=== PATIENT | male | born 1975 | race American Indian/Alaskan Native ===

== ENCOUNTER 2020-05-05 18:04 | Emergency (ER) | payer MEDICAID ==
[~2020-05-05] VITALS: Ht 180.3 cm; Wt 83.0 kg
[2020-05-05 18:13] VITALS: BP 152/99
--- NOTE | 2020-05-05 18:51 | NUR ---
PATIENT PLACED IN ROOM AND ABDOMINAL PORTOCOL ORDERED
--- NOTE | 2020-05-05 19:30 | NUR ---
UA OBTAINED. RED, DARK URINE SPECIMEN SHOWED TO RENU BEDOYA. INFORMED PA LAB UNABLE TO DRAW LABS, HARD STICK. ORDERS FOR IV TX RECEIVED. EXPLAINED POC TO PATIENT WHO DECLINED TREATMENT AND IV AT THIS TIME; PATIENT STATES "PAIN IS GONE NOW AND I JUST WANT TO LEAVE". PA INFORMED, ORDERS FOR D/C RECEIVED.
[2020-05-05] MEDS ORDERED: normal saline 1000ML IV soln IVB ONE (19:35)
[2020-05-05 19:56] LABS: CLARITY,URINE CLOUDY (Clear); COLOR,URINE BROWN (Yellow); GLUCOSE, URINE NEGATIVE (Neg); KETONES,URINE TRACE mg/dl (Neg); LEUKOCYTE ESTERASE ,URINE NEGATIVE (Neg); NITRITES, URINE NEGATIVE (Neg); OCCULT BLOOD,URINE LARGE (Neg); PH,URINE 6.5 (4.8-8.0); PROTEIN,URINE 100 mg/dl (Neg); UA COLLECTION TYPE CLN CATCH MIDSTREAM
[2020-05-05 20:04] LABS: URINE AMPHETAMINE SCREEN POSITIVE (Neg); URINE BARBITUATE SCREEN NEGATIVE (Neg); URINE BENZODIAZEPINES SCREEN NEGATIVE (Neg); URINE CANNABINOID SCREEN POSITIVE (Neg); URINE COCAINE SCREEN NEGATIVE (Neg); URINE METHADONE SCREEN NEGATIVE (Neg); URINE OPIATE SCREEN NEGATIVE (Neg); URINE PHENCYCLIDINE SCREEN NEGATIVE (Neg)
[2020-05-05 20:06] LABS: WBC,URINE 0-4 /HPF (0-4)
[2020-05-05 20:07] LABS: BACTERIA,URINE FEW /HPF (Neg); RBC,URINE TNTC /HPF (0-2)
[2020-05-05 20:08] LABS: MUCUS STRANDS MODERATE /LPF (Neg); RENAL CELLS, URINE FEW /HPF; SQUAMOUS EPITHELIAL CELL,UR FEW /LPF (FEW)
[2020-05-05 20:09] LABS: CAL OXALATE CRYSTALS FEW /HPF (NEGATIVE); YEAST FEW /HPF (NEGATIVE)
== END 2020-05-05 20:06 | disposition home or self-care (01) ==
LOC: ER 18:05
DX: R10.31 Right lower quadrant pain (principal); R10.9 Unspecified abdominal pain; R31.9 Hematuria, unspecified; M54.9 Dorsalgia, unspecified; F17.200 Nicotine dependence, unspecified, uncomplicated; Z87.442 Personal history of urinary calculi
CPT/HCPCS: 36415; 80305; 81001; 99283